=== PATIENT | female | born 1995 | race Caucasian/White ===

== ENCOUNTER 2022-04-05 00:22 | Emergency (ER) | payer BC ==
[~2022-04-05] VITALS: Ht 165.1 cm; Wt 99.8 kg
[2022-04-05 01:40] VITALS: BP_SYST 137
[2022-04-05 03:54] LABS: STREPTOCOCCUS A SCREEN (RAPID) NEGATIVE (NEGATIVE)
[2022-04-05] MEDS ORDERED: DEXAMETHASONE SOD PHOSPHATE 10 MG/ML VIAL IM ONE (04:45)
[2022-04-05] MEDS ORDERED: DEXAMETHASONE SOD PHOSPHATE 10 MG/ML VIAL ONE (04:48)
[2022-04-05 04:59] VITALS: BP_SYST 137
== END 2022-04-05 04:59 | disposition home or self-care (01) ==
LOC: SED 00:22
DX: J02.9 Acute pharyngitis, unspecified (principal); Z79.899 Other long term (current) drug therapy; Z20.822 Contact with and (suspected) exposure to COVID-19
CPT/HCPCS: 99283; 87426; 86403; 36415; 81025; 96372; 87081; 87804 ×2; J1100